=== PATIENT | male | born 1985 | race Caucasian/White ===

== ENCOUNTER 2020-08-19 15:02 | Emergency (ER) | payer OTHER ==
[~2020-08-19] VITALS: Ht 172.7 cm; Wt 82.3 kg
[2020-08-19] MEDS ORDERED: LIDOCAINE 2% MDV 20ML VIAL SC ONE (15:55)
--- NOTE | 2020-08-19 15:56 | REP ---
INDICATION: trauma COMPARISON: None. TECHNIQUE: Four views left 5th toe. FINDINGS: There is a fracture of the proximal phalanx with mild lateral displacement and angulation. There is no other evidence of acute fracture or dislocation. IMPRESSION: There is a fracture of the proximal phalanx with mild lateral displacement and angulation. <Electronically signed by Arturo Emmanuel > 08/19/20 [id number]
[2020-08-19 16:20] VITALS: BP 125/80
== END 2020-08-19 16:34 | disposition home or self-care (01) ==
LOC: M ED 15:02
DX: S92.355A Nondisplaced fracture of fifth metatarsal bone, left foot, initial encounter for closed fracture (principal); W22.09XA Striking against other stationary object, initial encounter; Y92.019 Unspecified place in single-family (private) house as the place of occurrence of the external cause; Y93.9 Activity, unspecified; Y99.9 Unspecified external cause status